=== PATIENT | male | born 1975 | race Hispanic/Latino ===

== ENCOUNTER 2023-12-08 18:00 | Emergency (ER) | payer OTHER ==
[~2023-12-08] VITALS: Ht 165.1 cm; Wt 73.0 kg
[2023-12-08] MEDS ORDERED: ASPIRIN 81 MG CHEW PO ONE (18:15)
[2023-12-08 18:17] LABS: BASOPHILS 0.9 % (0-2); EOSINOPHILS 2.2 % (0-6); HEMATOCRIT 43.9 % (35.0-50.0); HEMOGLOBIN 15.2 g/dL (12.0-18.0); LYMPHOCYTES 34.7 % (24-44); MCH 29.8 (27-36); MCHC 34.6 g/dl (30-36); MCV 86.2 fl (81-99); MONOCYTES 6.2 % (0-12); PLATELET COUNT 210 K/uL (140-440); RDW 13.5 (10.5-15.0)
[2023-12-08 18:34] LABS: ALBUMIN 3.5 g/dL (3.4-5.0); ALBUMIN/GLOBULIN RATIO 1.17 (1.1-2.4); ALKALINE PHOSPHATASE 60 U/L (46-116); ALT (SGPT) 29 U/L (14-59); ANION GAP 18.9 (7-21); AST (SGOT) 27 U/L (15-37); BILIRUBIN, TOTAL 0.7 ng/dL (0.2-1.0); BUN/CREATININE RATIO 17.44 (6.0-28.6); CALCIUM 8.1 mg/dL (8.5-10.1); CARBON DIOXIDE 20 mmol/L (21-32); CHLORIDE 98 mmol/L (98-107); CREATININE, SERUM 0.86 mg/dL (0.70-1.30); GLOMERULAR FILTRATION RATE,EST 107 mL/min (>60); MAGNESIUM 1.6 mg/dL (1.8-2.4); POTASSIUM 3.9 mmol/L (3.5-5.1); PROTEIN, TOTAL 6.5 g/dL (6.4-8.2); UREA NITROGEN 15 mg/dL (7-18)
[2023-12-08] MEDS ORDERED: MAGNESIUM SULFATE 2 GM/50 ML BAG IV ONE (19:30)
[2023-12-08] MEDS ORDERED: INSULIN LISPRO 100 UNIT/ML ML IV ONE (19:30)
[2023-12-08 20:02] LABS: PH, VENOUS 7.407 (7.31-7.41)
[2023-12-08] MEDS ORDERED: ASPIRIN 81 MG CHEW ONE (20:33)
[2023-12-08] MEDS ORDERED: HEPARIN SOD,PORK IN 0.45% NACL 500 ML IV SCH (20:45)
[2023-12-08] MEDS ORDERED: HEParin SOD (PORCINE) 5,000 UNIT/ML VIAL IV ONE (20:45)
[2023-12-08 20:58] LABS: INFLUENZA B NAA NEGATIVE (NEGATIVE); RESPIRATORY SYNCYTIAL VIR NAA NEGATIVE (NEGATIVE)
[2023-12-08 20:58] LABS: BILIRUBIN, URINE NEGATIVE (negative); BLOOD/HGB, URINE NEGATIVE (Negative); KETONE, URINE SMALL (Negative); LEUK ESTERASE, URINE NEGATIVE (negative); NITRITE, URINE NEGATIVE (negative); PH, URINE 5.5 (5-7)
[2023-12-08 21:13] LABS: AMPHETAMINES, URINE NEGATIVE (NEGATIVE); BARBITURATES, URINE NEGATIVE (NEGATIVE); BENZODIAZEPINE, URINE NEGATIVE (NEGATIVE); BUPRENORPHINE, URINE NEGATIVE (NEGATIVE); CANNABINOID, URINE NEGATIVE (NEGATIVE); COCAINE, URINE NEGATIVE (NEGATIVE); ECSTASY, URINE NEGATIVE (NEGATIVE); FENTANYL, URINE NEGATIVE (NEGATIVE); METHADONE, URINE NEGATIVE (NEGATIVE); OPIATES, URINE NEGATIVE (NEGATIVE); OXYCODONE, URINE NEGATIVE (NEGATIVE); PHENCYCLIDINE, URINE NEGATIVE (NEGATIVE)
[2023-12-08] MEDS ORDERED: METOPROLOL TARTRATE 5 MG/5 ML VIAL IV ONE (22:00)
[2023-12-08] MEDS ORDERED: NITROGLYCERIN PACKET TOP ONE (23:00)
[2023-12-09 00:43] VITALS: BP 128/90
--- NOTE | 2023-12-10 18:27 | EKG ---
[facility] [address] [facility] [place], [place] [address] Signed Sinus tachycardia Otherwise normal ECG No previous ECGs available Confirmed by Cathy Eastman MD ([id number]) on 12/10/2023 6:27:39 PM Electronically Signed By: CATHY EASTMAN 12/10/23 1827 PATIENT NAME: ROSALINDA SINGER Electrocardiogram DATE OF : 75 PHYSICIAN: CATHY EASTMAN REPORT #: [id number] REPORT IS CONFIDENTIAL AND NOT TO BE RELEASED WITHOUT AUTHORIZATION
--- NOTE | 2023-12-10 18:27 | EKG ---
[facility] [address] [facility] [place] [address] Signed Sinus tachycardia Possible Lateral infarct , age undetermined Cannot rule out Inferior infarct , age undetermined Abnormal ECG When compared with ECG of 08-DEC-2023 17:59, (Unconfirmed) Borderline criteria for Lateral infarct are now present Minimal criteria for Inferior infarct are now present ST elevation now present in Inferior leads Confirmed by Cathy Eastman MD ([id number]) on 12/10/2023 6:26:54 PM Electronically Signed By: CATHY EASTMAN 12/10/23 1827 PATIENT NAME: ROSALINDA SINGER Electrocardiogram DATE OF : 75 PHYSICIAN: CATHY EASTMAN REPORT #: [id number] REPORT IS CONFIDENTIAL AND NOT TO BE RELEASED WITHOUT AUTHORIZATION
== END 2023-12-09 00:56 | disposition short-term general hospital (02) ==
LOC: ED 18:00
PROVIDERS: Emergency Medicine; Family Medicine
DX: I21.4 Non-ST elevation (NSTEMI) myocardial infarction (principal); E11.9 Type 2 diabetes mellitus without complications
CPT/HCPCS: 36415; 71045; 80053; 80307; 81003; 82010; 82803; 83735; 83880; 84484; 85025; 85379; 85730; 87502; 93005; 93010; 96365; 96375; 99285-25; A9270; J1644; J1815; J3475; U0002